=== PATIENT | female | born 1965 | race Caucasian/White ===

== ENCOUNTER 2019-02-27 02:56 | Inpatient (IN) ==
--- NOTE | 2019-02-07 18:02 | EKG Report ---
Test Performed on : 02/07/2019 5:38:23 PM Test Reason : PAT Blood Pressure : / mmHG Vent. Rate : 079 BPM Atrial Rate : 079 BPM P-R Int : 160 ms QRS Dur : 076 ms QT Int : 346 ms P-R-T Axes : 002 034 069 degrees QTc Int : 396 ms Normal sinus rhythm. Low voltage QRS Borderline ECG No previous ECGs available Confirmed by Rodger IBRAHIM, Timothy Renner ([id number]) on 02/09/2019 9:02:21 AM
[2019-02-07 21:26] LABS: URINE SOURCE CLEAN CATCH
[2019-02-07 21:51] LABS: BILIRUBIN URINE NEGATIVE (NEGATIVE); BLOOD URINE NEGATIVE (NEGATIVE); COLOR YELLOW; GLUCOSE URINE NEGATIVE (NEGATIVE); KETONE URINE NEGATIVE (NEGATIVE); LEUKOCYTES URINE SMALL (NEGATIVE); NITRITE URINE NEGATIVE (NEGATIVE); PROTEIN URINE TRACE mg/dL (NEGATIVE); SP GRAVITY URINE 1.014; TURBIDITY URINE TURBID (CLEAR); UROBILINOGEN URINE NORMAL (NORMAL)
[2019-02-07 21:54] LABS: BASO# 0.02 X1000 (0.0-0.2); BASO% 0.2 % (0.0-0.8); EOS# 0.11 X1000 (0.0-0.7); EOS% 1.1 % (0.0-10.0); HEMATOCRIT 38.6 % (37.0-47.0); HEMOGLOBIN 13.3 g/dL (12.0-16.0); IMM GRAN# 0.03 X1000 (0.0-0.04); IMM GRAN% 0.3 % (0.0-0.5); LYMPH# 2.71 X1000 (1.2-3.4); LYMPH% 27.9 % (20.5-51.1); MCH 32.1 PG (27-31); MCHC 34.5 g/dL (33-37); MCV 93.2 FL (81-99); MONO# 0.72 X1000 (0.11-0.59); MONO% 7.4 % (1.7-9.3); MPV 10.6 FL (7.4-10.4); NEUT# 6.11 X1000 (1.4-6.5); NEUT% 63.1 % (42.2-75.2); PLT 279 X1000 (130-400); RBC 4.14 XMIL (4.2-5.4); RDW 12.5 % (11.5-14.5)
[2019-02-07 21:59] LABS: UR EPITHELIAL CELLS >10 /HPF (<10); URINE BACTERIA 2+ /HPF; URINE RBC <10 /HPF (<10); URINE WBC <10 /HPF (<10)
[2019-02-07 22:00] LABS: INR 0.84; PROTIME 12.2 Seconds (11.0-16.0)
[2019-02-07 22:01] LABS: PTT 28.6 Seconds (22.3-41.8)
[2019-02-07 22:09] LABS: URINE CASTS NONE SEEN
[2019-02-07 22:22] LABS: AGAP 11; BUN 13 mg/dL (8-22); CALCIUM 9.2 mg/dL (8.8-10.2); CHLORIDE 102 mmol/L (98-107); COSMO 283; CREATININE 0.6 mg/dL (0.5-0.9); ESTIMATED GFR > 60; GLUCOSE 94 mg/dL (70-104); POTASSIUM 3.8 mmol/L (3.5-5.1); SODIUM 142 mmol/L (136-145); TCO2 29 mmol/L (25-35)
[2019-02-27] MEDS ORDERED: DIPRIVAN 1% ONE ×3 (06:25→09:07)
[2019-02-27] MEDS ORDERED: PEPCID ONE (06:25)
[2019-02-27] MEDS ORDERED: REGLAN ONE (06:25)
[2019-02-27] MEDS ORDERED: FENTANYL ONE (06:25)
[2019-02-27] MEDS ORDERED: VERSED ONE (06:25)
[2019-02-27] MEDS ORDERED: XYLOCAINE-MPF 2% ONE (06:25)
[2019-02-27] MEDS ORDERED: COLACE ONE (06:25)
[2019-02-27] MEDS ORDERED: CELEBREX ONE (06:26)
[2019-02-27] MEDS ORDERED: QUELICIN (DOSE) ONE (06:26)
[2019-02-27] MEDS ORDERED: LYRICA ONE (06:26)
[2019-02-27] MEDS ORDERED: ZEMURON ONE (06:26)
[2019-02-27] MEDS ORDERED: LR 1,000 ML ONE (06:26)
[2019-02-27] MEDS ORDERED: KEFZOL 1 GM/D5W 1 GM/50 ML IVPB ONE (06:26)
[2019-02-27] MEDS ORDERED: DURAMORPH ONE (06:36)
[2019-02-27] MEDS ORDERED: MARCAINE 0.25% PF/EPI 1:200,000 ONE (06:36)
[2019-02-27] MEDS ORDERED: SODIUM CHLORIDE 0.9% ONE (06:36)
[2019-02-27] MEDS ORDERED: TORADOL ONE (06:36)
[2019-02-27] MEDS ORDERED: EXPAREL 1.3% ONE (06:37)
[2019-02-27] MEDS ORDERED: NEOSPORIN G.U. IRRIGANT ONE (06:37)
[2019-02-27] MEDS ORDERED: CYKLOKAPRON 1,000 MG/NS 1,000 MG/100 ML IVPB ONE (08:33)
[2019-02-27] MEDS ORDERED: OFIRMEV 1000 MG/ISOTONIC SOLN 1,000 MG/100 ML BOTTLE ONE (09:28)
[2019-02-27] MEDS ORDERED: ZOFRAN ONE (09:28)
[2019-02-27] MEDS ORDERED: DECADRON ONE (09:28)
[2019-02-27 09:42] LABS: URINE SOURCE CATH
[2019-02-27 09:46] LABS: BILIRUBIN URINE NEGATIVE (NEGATIVE); BLOOD URINE NEGATIVE (NEGATIVE); COLOR YELLOW; GLUCOSE URINE NEGATIVE (NEGATIVE); KETONE URINE NEGATIVE (NEGATIVE); LEUKOCYTES URINE NEGATIVE (NEGATIVE); NITRITE URINE NEGATIVE (NEGATIVE); PROTEIN URINE NEGATIVE (NEGATIVE); SP GRAVITY URINE 1.007; TURBIDITY URINE CLEAR (CLEAR); UROBILINOGEN URINE NORMAL (NORMAL)
[2019-02-27 09:47] LABS: UR EPITHELIAL CELLS <10 /HPF (<10); URINE BACTERIA NEGATIVE /HPF; URINE RBC <10 /HPF (<10); URINE WBC <10 /HPF (<10)
--- NOTE | 2019-02-27 10:10 | OPERATIVE NOTE ---
PROCEDURE DATE: 02/27/2019 PREOPERATIVE DIAGNOSIS: Degenerative joint disease, left hip. POSTOPERATIVE DIAGNOSIS: Degenerative joint disease left hip. PROCEDURE PERFORMED: Left anterior hip replacement. SURGEON: Shorty Braxton MD. WATCHMAKER APPRENTICE: ADRIANA Toribio Mr. Kraft was necessary for proper retraction and manipulation of the leg during the case. ANESTHESIA: Spinal. COMPLICATION: None. PROCEDURE IN DETAIL: A 53-year-old female presents for a left anterior hip replacement. Risks, benefits, and no guarantees were discussed and she is willing to proceed. She was taken to the operating room and satisfactory anesthesia obtained. She was transferred the [place] table and the left hip prepped and draped in usual sterile fashion. A time-out was taken to confirm operative site, procedure, and patient. After prep and drape, an anterior approach to the left hip was undertaken through an incision roughly 10 cm long starting 1 cm distal and lateral to the anterior superior iliac spine and extended over the anterolateral thigh. Dissection was carried down to the skin and superficial fat to the fascia of the tensor fascia megan. This was split in line with the incision and blunt dissection with a glove tip finger undertaken down the anterior hip capsule. Cobra retractors were placed over the superior and inferior aspect of the femoral neck and a capsulotomy incision made to expose the joint. Prior to osteotomy of the femoral neck C-arm was used to luis an AP pelvis to establish leg lengths. Femoral neck osteotomy was made roughly 8 mm above the lesser trochanter and the femoral head removed. Sequential reaming of the acetabulum was undertaken up to a 49 reamer. This had good corticocancellous bone. A DePuy Mclean 50 outer diameter Duofix acetabular shell was then impacted in the acetabulum under fluoroscopic guidance in roughly 45 degrees of abduction and 15 degrees of anteversion with secure press-fit fixation. A 25 length screw was placed in the 12 o'clock position of the cup for additional security. A 0 degree 32 inner diameter polyethylene bearing was then impacted into the cup and stabilized. The liner cup interface and cup bone interface was checked and noted to be stable. All traction was released off the leg and the leg externally rotated and hip extended to facilitate broaching of the proximal femur. Sequential broaching with the Weblance actis broach was undertaken up to a size 3 broach. This had good axial and rotational stability. Standard neck geometry 1.5 head reproduced the leg length and actually slightly increased leg length to make up for some leg shortening noted preoperatively with good stability. The trial implant was removed and a active size 3 standard collar stem with a collar was impacted into the proximal femur with secure axial and rotational stability. A 32/ 1.5 mm neck length head was impacted onto this with a ceramic head and the hip reduced. The C-arm was used to verify accurate alignment of the prosthesis. Stability was assessed by releasing traction extending the hip almost to the floor with external rotation of 75 degrees without any anterior instability. The hip was flexed and no posterior instability noted. The wound was copiously irrigated with irrigant. The joint capsule and subcutaneous tissue was injected with Exparel for pain management. A Hemovac drain placed. The fascia of the tensor was closed with a running V-Loc suture, the subcutaneous with 2- 0 Vicryl and the skin with skin ynae. Sterile dressings completed the closure and the patient was recovered from anesthesia and transferred to the recovery room in stable condition. No intraoperative complications were noted. Instrument count and sponge count was correct at the time of closure. cc: Mina Braxton MD
[2019-02-27] MEDS ORDERED: OXY IR ONE (10:17)
[2019-02-27] MEDS: DILAUDID ONE ×2 (10:18→10:28)
[2019-02-27] MEDS ORDERED: NS 1,000 ML ONE (10:18)
[2019-02-27] MEDS ORDERED: OXY IR PO PRN ×2 (11:15)
[2019-02-27] MEDS ORDERED: MORPHINE IV PRN ×3 (11:15)
[2019-02-27] MEDS: NS 1,000 ML IV SCH ×2 (11:41→21:33)
[2019-02-27] MEDS: ULTRAM PO SCH ×2 (11:45→18:18)
[2019-02-27] MEDS ORDERED: CYKLOKAPRON 1,000 MG in NS 100 ML IV ONE (14:30)
[2019-02-27] MEDS: KEFZOL 1 GM/D5W 1 GM/50 ML IVPB IV SCH (16:34)
[2019-02-27] MEDS: TYLENOL PO SCH (16:34)
--- NOTE | 2019-02-27 18:07 | ORTHOPAEDICS PROGRESS NOTE ---
DATE: 02/27/2019 SUBJECTIVE: Ms. Hendricks is seen status post left hip replacement. OBJECTIVE: Vital signs: At the present time, she is afebrile with stable vital signs. General: She is comfortable without any significant pain. Musculoskeletal: She appears to be motor and sensory intact in both femoral and sciatic nerves. She has good capillary refill. Leg lengths are equal. PLAN: We will plan on mobilizing her later today and discharged home when she is mobilizing well. cc: Mina Braxton MD
[2019-02-27] MEDS ORDERED: ZOFRAN PO PRN (20:52)
[2019-02-27] MEDS: CELEBREX PO SCH (21:32)
[2019-02-27] MEDS: COLACE PO SCH (21:32)
[2019-02-27] MEDS: PERIDEX MT SCH (21:33)
[2019-02-28] MEDS: NS 1,000 ML IV SCH (00:05)
[2019-02-28] MEDS: ULTRAM PO SCH ×2 (00:06→06:46)
[2019-02-28] MEDS: TYLENOL PO SCH ×2 (00:06→06:45)
[2019-02-28] MEDS: KEFZOL 1 GM/D5W 1 GM/50 ML IVPB IV SCH (00:06)
[2019-02-28] MEDS: ZOFRAN IV PRN ×2 (01:35→06:51)
[2019-02-28 06:28] LABS: HEMATOCRIT 29.8 % (37.0-47.0); HEMOGLOBIN 10.7 g/dL (12.0-16.0)
[2019-02-28 06:59] LABS: AGAP 10; BUN 7 mg/dL (8-22); CALCIUM 7.3 mg/dL (8.8-10.2); CHLORIDE 91 mmol/L (98-107); COSMO 249; CREATININE 0.4 mg/dL (0.5-0.9); ESTIMATED GFR > 60; GLUCOSE 122 mg/dL (70-104); POTASSIUM 4.1 mmol/L (3.5-5.1); SODIUM 124 mmol/L (136-145); TCO2 23 mmol/L (25-35)
--- NOTE | 2019-02-28 08:03 | ORTHOPAEDICS PROGRESS NOTE ---
DATE: 02/28/2019 SUBJECTIVE: Ms. Hendricks is seen today status post total hip replacement. At the present time, she is afebrile with stable vital signs. Her incision is clean and dry. There is no signs of DVT or active bleeding. Will plan on mobilizing her today, and discharge home. She will follow up with me in roughly 10 to 14 days. She can return in the interim for any worsening signs or symptoms. She is discharged home on aspirin once a day for DVT prophylaxis, as well as Tropic 10 as needed for pain, and Bactrim for antibiotic prophylaxis. She is to return in the interim for any worsening signs or symptoms. cc: Mina Braxton MD
[2019-02-28 08:11] VITALS: BP 123/70
[2019-02-28] MEDS ORDERED: ASPIRIN PO SCH (09:00)
[2019-02-28] MEDS ORDERED: COZAAR PO SCH (09:00)
[2019-02-28] MEDS ORDERED: PEPCID PO SCH (09:00)
[2019-02-28] MEDS ORDERED: CENTRUM TABLET PO SCH (09:00)
[2019-02-28] MEDS: PERIDEX MT SCH (10:09)
[2019-02-28] MEDS: CELEBREX PO SCH (10:09)
[2019-02-28] MEDS: COLACE PO SCH (10:10)
== END 2019-02-28 13:16 | disposition home health service (06) | DRG 470 ==
LOC: SURHOLD 02:56 → 4N 10:55
PROVIDERS: ADMIT Orthopaedic Surgery Adult Reconstructive Orthopaedic Surgery; ATTEND Orthopaedic Surgery Adult Reconstructive Orthopaedic Surgery
CPT/HCPCS: 76000; 80048; 81001; 85014; 85018; 85025; 85610; 85730; 86850; 86900; 86901; 88305; 88311; 93005; 93010; 94761; 94799; 97110; 97116; 97162; A9270; C9290; J0131; J0330; J0690; J1100; J1170; J1885; J2250; J2274; J2275; J2405; J3010; J7030; J7120; Q9974